=== PATIENT | male | born 2000 | race Caucasian/White ===

== ENCOUNTER 2020-12-22 14:15 | Emergency (ER) | payer OTHER ==
[~2020-12-22] VITALS: Ht 167.6 cm; Wt 72.6 kg
[2020-12-22 14:31] VITALS: BP 111/71
[2020-12-22] MEDS ORDERED: ALBU0.0912 IH (14:45)
--- NOTE | 2020-12-22 15:04 | NUR ---
NO NURSING INTERVENTIONS GIVEN TO PATIENT. NO NEED FOR COMPLETE ASSESSMENT
[2020-12-22 15:07] VITALS: BP 111/71
== END 2020-12-22 15:07 | disposition home or self-care (01) ==
LOC: MED 14:15
DX: J45.909 Unspecified asthma, uncomplicated (principal); Z76.0 Encounter for issue of repeat prescription; Z79.899 Other long term (current) drug therapy
CPT/HCPCS: 99281